=== PATIENT | male | born 1995 | race African-American/Black ===

== ENCOUNTER 2018-01-13 09:02 | Emergency (ER) | payer SELFPAY ==
[2018-01-13] MEDS ORDERED: ACETAMINOPHEN 500 MG TAB PO (09:46)
[2018-01-13] MEDS: HYDROCODONE/APAP (5/325) TAB PO (09:53)
== END 2018-01-13 13:10 | disposition home or self-care (01) ==
LOC: FTE 09:02
DX: S52.615A Nondisplaced fracture of left ulna styloid process, initial encounter for closed fracture (principal); F17.210 Nicotine dependence, cigarettes, uncomplicated; W10.8XXA Fall (on) (from) other stairs and steps, initial encounter; Y92.9 Unspecified place or not applicable
CPT/HCPCS: 29125; 73110; 73562; 73630; 99284-25

== ENCOUNTER 2018-02-27 09:41 | Emergency (ER) | payer SELFPAY ==
[2018-02-27] MEDS: IBUPROFEN 600 MG TAB PO (10:02)
== END 2018-02-27 10:06 | disposition home or self-care (01) ==
LOC: FTE 09:41
DX: J20.9 Acute bronchitis, unspecified (principal); Z87.891 Personal history of nicotine dependence
CPT/HCPCS: 99283

== ENCOUNTER 2018-05-14 09:22 | Emergency (ER) | payer OTHER ==
[2018-05-14] MEDS: ACETAMINOPHEN 500 MG TAB PO (09:57)
== END 2018-05-14 10:01 | disposition home or self-care (01) ==
LOC: FTE 09:22
DX: J02.9 Acute pharyngitis, unspecified (principal)
CPT/HCPCS: 99283; Z7502